=== PATIENT | male | born 1990 | race Caucasian/White ===

== ENCOUNTER 2021-02-24 21:56 | Emergency (ER) | payer BC, SELFPAY ==
[2021-02-24] MEDS ORDERED: Lidocaine 1% 20 ML MDV ONE (22:28)
[2021-02-24] MEDS ORDERED: cefTRIAXone\\ROCEPHIN 1 GM VIAL ONE (22:28)
[2021-02-24] MEDS ORDERED: Azithromycin 250 MG TAB ONE (22:28)
== END 2021-02-24 22:55 | disposition home or self-care (01) ==
LOC: MADERS 21:56
DX: L04.1 Acute lymphadenitis of trunk (principal)
CPT/HCPCS: 96372; 99282; J0696